=== PATIENT | female | born 1945 | race Caucasian/White ===

== ENCOUNTER 2021-03-18 04:37 | Day surgery (SDC) | payer OTHER, BC ==
[2021-03-16 14:37] VITALS: BMI 39.3
[2021-03-18 10:37] VITALS: BP 114/55; PULSE 69; TEMP 97
== END 2021-03-18 10:42 | disposition home or self-care (01) ==
LOC: JASU-ENDO 04:37
PROVIDERS: ATTEND Internal Medicine Gastroenterology
PROC: 0DBP8ZX Excision of Rectum, Via Natural or Artificial Opening Endoscopic, Diagnostic (ICD-10-PCS; principal; 2021-03-18 09:00)
DX: Z12.11 Encounter for screening for malignant neoplasm of colon (principal); Z80.0 Family history of malignant neoplasm of digestive organs; K62.1 Rectal polyp; K64.8 Other hemorrhoids; K57.30 Diverticulosis of large intestine without perforation or abscess without bleeding
CPT/HCPCS: 88305-TC

== ENCOUNTER 2021-03-24 04:19 | Day surgery (SDC) | payer OTHER, BC ==
[2021-03-18 16:06] VITALS: BMI 37.7
[~2021-03-24 04:19] MED LIST: ceFAZolin SODIUM 1 GM VIAL IVPB ONE
[2021-03-24] MEDS ORDERED: ETOMIDATE 20 MG/10 ML AMPUL IVPUSH ONE ×2 (12:07→12:09)
[2021-03-24] MEDS ORDERED: LIDOCAINE HCL/PF 2% SDV 5ML VIAL ONE (12:10)
[2021-03-24] MEDS ORDERED: ONDANSETRON 4 MG/2 ML VIAL ONE (12:21)
[2021-03-24] MEDS ORDERED: DEXAMETHASONE SOD PHOSPHATE 4 MG/1 ML VIAL ONE (12:21)
[2021-03-24] MEDS ORDERED: oxyCODONE HCL 5 MG TABLET PO PRN (12:58)
[2021-03-24] MEDS ORDERED: ONDANSETRON 4 MG/2 ML VIAL IVPUSH PRN (12:58)
[2021-03-24] MEDS ORDERED: LACTATED RINGERS SOLUTION 1,000 ML IV SCH (13:00)
[2021-03-24] MEDS ORDERED: IBUPROFEN 800 MG/8 ML IJ IVPB PRN (13:05)
[2021-03-24 14:34] VITALS: TEMP 96.9
[2021-03-24 16:35] VITALS: BP 141/63; PULSE 89
== END 2021-03-24 15:30 | disposition home or self-care (01) ==
LOC: JASU-SURG 04:19
PROVIDERS: ATTEND Obstetrics & Gynecology
PROC: 0UB98ZX Excision of Uterus, Via Natural or Artificial Opening Endoscopic, Diagnostic (ICD-10-PCS; principal; 2021-03-24 10:30)
PROC: 0UDB7ZX Extraction of Endometrium, Via Natural or Artificial Opening, Diagnostic (ICD-10-PCS; 2021-03-24 10:30)
DX: N84.0 Polyp of corpus uteri (principal)
CPT/HCPCS: 88305-TC; 94760